=== PATIENT | male | born 1970 | race Caucasian/White ===

== ENCOUNTER 2017-01-08 14:31 | Emergency (ER) | payer SELFPAY ==
[~2017-01-08 14:31] MED LIST: ATARAX25 MG PO; HYDROCHLOROTHIA25 MG PO; MOTRIN600 MG PO
[2017-01-08] MEDS ORDERED: NO HOME MEDICATION XX (15:30)
[2017-01-08 17:16] LABS: BASO % 0.6 % (0-2); EOS % 7.2 % (0-7); EOSINOPHIL ABSOLUTE COUNT 0.5 tho/cmm (0.0-0.7); HCT-HEMATOCRIT 42.5 % (36.0-53.5); HGB-HEMOGLOBIN 14.8 gm/dl (13.5-17.0); IMMATURE GRANULOCYTES ABSOLUTE 0.01 tho/cmm (0-0.03); IMMATURE GRANULOCYTES PERCENT 0.1 % (0-0.3); LYMPH % 36.5 % (20-45); LYMPH ABSOLUTE COUNT 2.5 tho/cmm (0.8-4.5); MCH (MEAN CORPUSCULAR HGB) 28.8 pg (28.0-32.0); MCHC MEAN CORPUSCULAR HGB CONC 34.8 % (32.0-36.0); MCV (MEAN CELL VOLUME) 82.7 fl (82.0-96.0); MEAN PLATELET VOLUME 9.4 cmc (9.4-12.4); MONO % 7.2 % (0-12); MONOCYTE ABSOLUTE COUNT 0.5 tho/cmm (0.0-1.2); NEUTROPHIL ABSOLUTE COUNT 3.3 tho/cmm (1.6-8.0); NEUTROPHIL-AUTOMATED 3.3 tho/cmm (1.6-8.0); NEUTROPHILS % 48.4 % (40-80); PLATELET COUNT 323 tho/cmm (150-450); RED BLOOD COUNT 5.14 mil/cmm (4.40-5.70); RED CELL DISTRIBUTION WIDTH 13.5 % (12.4-16.4); WHITE BLOOD COUNT 6.8 tho/cmm (4.0-10.0)
[2017-01-08] MEDS ORDERED: AUGMENTIN 875-1 EAC2 PO (17:20)
== END 2017-01-08 17:43 ==
LOC: EDMED 14:31
PROVIDERS: Nurse Practitioner Family
DX: R22.31 Localized swelling, mass and lump, right upper limb (principal); Z87.891 Personal history of nicotine dependence; Z98.890 Other specified postprocedural states

== ENCOUNTER 2017-01-11 01:08 | Observation (INO) | payer SELFPAY ==
[~2017-01-11 01:08] MED LIST changes: +AUGMENTIN 875-1 EAC2 PO; +NO HOME MEDICATION XX
[2017-01-11 02:33] LABS: BASO % 0.3 % (0-2); EOSINOPHIL ABSOLUTE COUNT 0.5 tho/cmm (0.0-0.7); HCT-HEMATOCRIT 42.7 % (36.0-53.5); HGB-HEMOGLOBIN 15.1 gm/dl (13.5-17.0); IMMATURE GRANULOCYTES ABSOLUTE 0.02 tho/cmm (0-0.03); IMMATURE GRANULOCYTES PERCENT 0.3 % (0-0.3); LYMPH ABSOLUTE COUNT 2.5 tho/cmm (0.8-4.5); MCH (MEAN CORPUSCULAR HGB) 28.9 pg (28.0-32.0); MCHC MEAN CORPUSCULAR HGB CONC 35.4 % (32.0-36.0); MCV (MEAN CELL VOLUME) 81.6 fl (82.0-96.0); MEAN PLATELET VOLUME 9.4 cmc (9.4-12.4); MONO % 5.4 % (0-12); MONOCYTE ABSOLUTE COUNT 0.4 tho/cmm (0.0-1.2); NEUTROPHIL ABSOLUTE COUNT 3.5 tho/cmm (1.6-8.0); NEUTROPHIL-AUTOMATED 3.5 tho/cmm (1.6-8.0); PLATELET COUNT 353 tho/cmm (150-450); RED BLOOD COUNT 5.23 mil/cmm (4.40-5.70); RED CELL DISTRIBUTION WIDTH 13.4 % (12.4-16.4); WHITE BLOOD COUNT 6.9 tho/cmm (4.0-10.0)
[2017-01-11 02:51] LABS: ANION GAP 12 mmol/L (0-20); BLOOD UREA NITROGEN 6 mg/dl (6-24); CALCIUM 9.3 mg/dl (8.5-10.5); CARBON DIOXIDE-VENOUS 26 mmol/L (22-32); CHLORIDE 108 mmol/l (96-110); CREATININE 0.74 mg/dl (0.60-1.30); GLUCOSE 101 mg/dL (70-110); POTASSIUM 3.9 mmol/L (3.7-5.1); SODIUM 142 mmol/L (135-145); eGFR VALUE FOR BLACK >90 mL/Min
[2017-01-11 02:54] LABS: TSH-THYROID STIMULATING HORM. 1.19 uIU/ml (0.40-3.80)
[2017-01-12 06:27] LABS: BASO % 0.3 % (0-2); EOS % 6.1 % (0-7); EOSINOPHIL ABSOLUTE COUNT 0.5 tho/cmm (0.0-0.7); HCT-HEMATOCRIT 42.6 % (36.0-53.5); HGB-HEMOGLOBIN 14.6 gm/dl (13.5-17.0); IMMATURE GRANULOCYTES ABSOLUTE 0.02 tho/cmm (0-0.03); IMMATURE GRANULOCYTES PERCENT 0.3 % (0-0.3); LYMPH % 36.1 % (20-45); LYMPH ABSOLUTE COUNT 2.9 tho/cmm (0.8-4.5); MCH (MEAN CORPUSCULAR HGB) 28.3 pg (28.0-32.0); MCHC MEAN CORPUSCULAR HGB CONC 34.3 % (32.0-36.0); MCV (MEAN CELL VOLUME) 82.7 fl (82.0-96.0); MEAN PLATELET VOLUME 9.4 cmc (9.4-12.4); MONO % 8.1 % (0-12); MONOCYTE ABSOLUTE COUNT 0.6 tho/cmm (0.0-1.2); NEUTROPHIL ABSOLUTE COUNT 3.9 tho/cmm (1.6-8.0); NEUTROPHIL-AUTOMATED 3.9 tho/cmm (1.6-8.0); NEUTROPHILS % 49.1 % (40-80); PLATELET COUNT 338 tho/cmm (150-450); RED BLOOD COUNT 5.15 mil/cmm (4.40-5.70); RED CELL DISTRIBUTION WIDTH 13.7 % (12.4-16.4); WHITE BLOOD COUNT 7.9 tho/cmm (4.0-10.0)
[2017-01-12 06:35] LABS: ANION GAP 13 mmol/L (0-20); BLOOD UREA NITROGEN 7 mg/dl (6-24); CALCIUM 8.6 mg/dl (8.5-10.5); CARBON DIOXIDE-VENOUS 24 mmol/L (22-32); CHLORIDE 109 mmol/l (96-110); CREATININE 0.73 mg/dl (0.60-1.30); GLUCOSE 112 mg/dL (70-110); POTASSIUM 3.7 mmol/L (3.7-5.1); SODIUM 142 mmol/L (135-145); eGFR VALUE FOR BLACK >90 mL/Min
[2017-01-13] MEDS ORDERED: PRINIVIL20 M1 PO (17:44)
[2017-01-13] MEDS ORDERED: NORVASC10 M2 PO (17:44)
[2017-01-13] MEDS ORDERED: TYLENOL325 M2 PO (17:45)
== END 2017-01-13 18:20 ==
LOC: EDMED 01:08 → 5EB 08:25
PROVIDERS: Emergency Medicine; ADMIT Hospitalist
DX: I16.0 Hypertensive urgency (principal); G89.29 Other chronic pain; M54.9 Dorsalgia, unspecified; M25.511 Pain in right shoulder; Z98.890 Other specified postprocedural states; Z87.891 Personal history of nicotine dependence; Z79.899 Other long term (current) drug therapy
CPT/HCPCS: C8929; G0378; J0360; J7030